=== PATIENT | female | born 1980 | race Caucasian/White ===

== ENCOUNTER 2020-12-13 20:56 | Emergency (ER) | payer OTHER, SELFPAY ==
--- NOTE | ~2020-12-13 | XR_ITS ---
XR thoracic spine 3V DATE: 12/13/2020 21:29 INDICATION: Fall yesterday. Upper thoracic pain. TECHNIQUE: AP, lateral, swimmer views COMPARISON: None FINDINGS: There is thoracic dextroscoliosis. No fracture or dislocation or bone destruction. The thor acic pedicles are intact. No paraspinal soft tissue thickening. Mild degenerative change including moderate degenerative disc disease at T12-L1. Schmorl's node at L1-2. IMPRESSION: Dextroscoliosis and mild degenerative change Reviewed, dictated and finalized at location A.
--- NOTE | ~2020-12-13 | XR_ITS ---
XR shoulder LT min 2V DATE: 12/13/2020 21:29 INDICATION: Fall yesterday. Generalized left shoulder pain. TECHNIQUE: 4 views COMPARISON: None FINDINGS: No fracture or dislocation. Normal alignment at the acromioclavicular and glenohumeral join ts. No abnormal soft tissue calcification. No periosteal reaction or bone destruction. IMPRESSION: Negative left shoulder Reviewed, dictated and finalized at location A. IMPRESSION: Negative left shoulder
[2020-12-13 21:00] VITALS: BP 131/76; PULSE 93; RESP 16; TEMP 36.6; O2SAT 98
--- NOTE | 2020-12-13 21:14 | ED.FALL ---
HPI - Fall General Chief Complaint: Fall Stated Complaint: fall Time Seen by Provider: 12/13/20 21:04 Source: patient and family Mode of arrival: ambulatory Limitations: no limitations History of Present Illness HPI Narrative: Patient is 40 years old white female presented to the ED with her complaining of left shoulder and upper back pain started after a fall yesterday while taking a shower. Patient slipped and fell. Denies other injuries. No loss of consciousness, no blood thinners. History of depression. Patient denies any fever, chills, nausea, vomiting, chest pain, shortness of breath, headache. Currently patient on [place] and ibuprofen for chronic lower back pain. Related Data Allergies Allergy/AdvReac Type Severity Reaction Status Date / Time doxycycline Allergy Rash Verified 12/13/20 21:36 ketorolac [From Toradol] Allergy Hives Verified 12/13/20 21:36 naproxen Allergy Rash Verified 12/13/20 21:36 sulfamethoxazole Allergy Rash Verified 12/13/20 21:36 [From Bactrim] tramadol Allergy Hives Verified 12/13/20 21:36 trimethoprim [From Bactrim] Allergy Rash Verified 12/13/20 21:36 Review of Systems Review of Systems: Narrative: CONSTITUTIONAL: Denies fever, chills, or sweats. EYES: Denies visual changes, redness, or discharge. ENT: Denies rhinorrhea, congestion, sore throat, or otalgia. CARDIOVASCULAR: Denies chest pain, palpitations, or edema. RESPIRATORY: Denies cough or dyspnea. GASTROINTESTINAL: Denies abdominal pain, nausea, vomiting, or diarrhea. GENITOURINARY: Denies dysuria or hematuria. SKIN: Denies rash or itching. MUSCULOSKELETAL: Denies back pain, joint pain, or myalgia. NEUROLOGIC: Denies headache, numbness, or weakness. PSYCHIATRIC: Denies anxiety or depression. PMFSH Social History Social History Gender identity (if verbalized by the patient): Female Exam Narrative: Exam Narrative: General appearance: Well-developed, well-nourished Skin: Normal color Head: Normocephalic, nontraumatic Eyes: Clear conjunctiva ENT: Oropharynx normal, ears normal, nose normal Neck: Supple, nontender Chest and respiratory: Airway patent, no respiratory distress, no accessory muscle use Heart: Regular rate/rhythm Abdomen: Soft, nontender, no organomegaly, quiet bowel sounds Vascular: Normal peripheral pulses, normal capillary refill. 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 X-ray thoracic spine and left shoulder ordered. Further plan to follow Differential Diagnosis Differential diagnosis: Likely other (Fracture left shoulder, thoracic spine, contusion) Imaging Data Radiologist's impression: Impressions Thoracic Spine X-Ray 12/13/20 21:35 IMPRESSION: Dextroscoliosis and mild degenerative change Shoulder X-Ray 12/13/20 21:38 IMPRESSION: Negative left shoulder Critical Care Time Critical Care Time Critical Care Time: No Discharge Plan Discharge Cl
[2020-12-13] MEDS: MORPHINE SULFATE INJ (*CRX) 10 MG/ML AMP 6 MG IM (21:41)
[2020-12-13 22:17] VITALS: BP 122/70; PULSE 77; RESP 18; TEMP 36.8; O2SAT 100
== END 2020-12-13 22:17 | disposition home or self-care (01) ==
PROVIDERS: Emergency Provider Emergency Medicine; PCP Family Medicine
DX: M25.512 Pain in left shoulder (principal); S29.9XXA Unspecified injury of thorax, initial encounter; W18.2XXA Fall in (into) shower or empty bathtub, initial encounter
CPT/HCPCS: 72072; 73030; 96372; 99284; J2270

== ENCOUNTER 2021-03-04 18:07 | Emergency (ER) | payer OTHER, SELFPAY ==
[2021-03-04 19:30] VITALS: BP 123/71; PULSE 99; RESP 12; TEMP 36.1; O2SAT 100
--- NOTE | 2021-03-04 20:39 | PC.NURSE ---
pt called x 2 to be placed in room, no answer.
== END 2021-03-04 20:39 | disposition left against medical advice (07) ==
PROVIDERS: PCP Family Medicine
DX: Z53.21 Procedure and treatment not carried out due to patient leaving prior to being seen by health care provider (principal)
CPT/HCPCS: 99199

== ENCOUNTER 2021-03-05 19:30 | Emergency (ER) | payer OTHER, SELFPAY ==
--- NOTE | ~2021-03-05 | CT_ITS ---
EXAMINATION: CT abdomen pelvis w con DATE: 03/05/2021 22:01 INDICATION: Abdominal pain, vomiting. Body aches. Point IV exposure. TECHNIQUE: Computed tomography (CT) of the abdomen and pelvis was performed with 100 cc Omnipaque 350 intravenous contrast. Automated exposure control and iterative reconstruction technique were employe d. Exam dose: 744.23 mGy-cm total exam DLP. COMPARISON: None. FINDINGS: There are several up to 5 mm nodular densities in the left lower lung peripherally. The deven g bases are clear of infiltrate or consolidation. Normal heart size. No pericardial or pleural effusion. The liver, gallbladder, bile ducts, pancreas, pancreatic duct, spleen, and adrenal glands and kidneys appear normal. Normal caliber of the abdominal aorta. No intraperitoneal or retroperitoneal or pelvic mass lesion or adenopathy or ascites is evident. Retroverted uterus and ovarian cysts measuring up to 2 cm on the left. The urinary bladder is unremar kable. Normal appendix. No bowel obstruction, bowel wall thickening, pneumatosis or intraperitoneal free air . Small fat-containing umbilical hernia. Included skeletal structures are unremarkable. IMPRESSION: No significant abnormality of the abdomen or pelvis Several nonspecific 5 mm left lower lobe nodules Reviewed, dictated and finalized at [facility]. Reviewed, dictated and finalized at location A.
--- NOTE | ~2021-03-05 | CT_ITS ---
EXAMINATION: CT brain wo con DATE: 03/05/2021 23:14 INDICATION: Headache for 2 days TECHNIQUE: Computed tomography (CT) of the head was performed without intravenous contrast. The mA wa s adjusted according to patient size. Iterative reconstruction technique was employed. Exam dose: 60 5.33 mGy-cm total exam DLP. COMPARISON: None FINDINGS: No intracranial mass lesion or hemorrhage or cerebrovascular accident. No midline shift or mass effect effect. Normal ventricular size. Normal gonzales-white matter differentiation. No subdural or epidural hematoma. Mild fluid and/or soft tissue thickening along the posterior zepeda of the sphenoid sinuses and left m axillary sinus. The paranasal sinuses and mastoid air cells otherwise are unremarkable. No fracture or bone destruction of the cranial vault. IMPRESSION: No intracranial abnormality Soft tissue thickening and/or fluid at the dependent aspect of the left maxillary and both sphenoid Reviewed, dictated and finalized at [facility]. Reviewed, dictated and finalized at location A. IMPRESSION: No intracranial abnormality Soft tissue thickening and/or fluid at the dependent aspect of the left maxilla ry and both sphenoid
--- NOTE | ~2021-03-05 | XR_ITS ---
XR chest 1V portable DATE: 03/05/2021 21:27 INDICATION: Cough and body aches for 2 days. TECHNIQUE: Portable upright AP chest on 02/27/2021 at 2122 hours COMPARISON: None FINDINGS: Normal heart size. No hilar or mediastinal enlargement. No pulmonary infiltrate or consolid ation, pleural effusion or pulmonary vascular congestion or pneumothorax. Diffuse osteopenia. IMPRESSION: No active cardiopulmonary disease Reviewed, dictated and finalized at location A.
[2021-03-05 19:34] VITALS: BP 146/85; PULSE 106; RESP 18; TEMP 37.3; O2SAT 100
[2021-03-05 20:02] LABS: Eosinophils Absolute Auto 0.3 K/mm3 (0-0.3); Eosinophils Percent Auto 5.6 % (0-4.4); Hematocrit 39.8 % (37.0-47.0); Hemoglobin 13.1 g/dL (12.0-15.0); Immature Granulocyte Absolute 0.03 K/mm3 (0.00-0.031); Immature Granulocyte Percent A 0.5 % (0-0.5); Lymphocytes Absolute Auto 0.34 K/mm3 (0.9-3.2); Lymphocytes Percent Auto 5.8 % (18.3-44.2); Mean Corpuscular HGB Conc 32.9 g/dl (32-36); Mean Corpuscular Hemoglobin 28.7 pg (26-34); Mean Corpuscular Volume 87.1 fl (80-100); Mean Platelet Volume 10.8 fl (7.4-10.4); Monocytes Absolute Auto 0.2 K/mm3 (0.1-0.6); Monocytes Percent Auto 3.1 % (2.6-8.5); Platelet Count Result 256 k/mm3 (150-375); Red Blood Count 4.57 M/mm3 (4.2-5.4); Red Cell Distribution Width 16.7 % (11.5-14.5); White Blood Count 5.9 K/mm3 (4.5-10.0)
[2021-03-05 20:18] LABS: Alanine Aminotransferase 17 U/L (4-35); Albumin Level 4.4 g/dL (3.5-5.1); Alkaline Phosphatase 110 U/L (38-126); Anion Gap 12 mmol/L (8-16); Aspartate Amino Transferase 26 U/L (14-36); Bilirubin,Total 0.3 mg/dL (0.2-1.3); Blood Urea Nitrogen 13 mg/dL (7-17); Calcium 8.9 mg/dL (8.4-10.2); Carbon Dioxide 19 mmol/L (22-30); Chloride 105 mmol/L (98-107); Estimated CRCL calculation 84 ml/min; Estimated Glomerular Filt Rate > 60; Glucose 113 mg/dL (65-110); Lipase 77 U/L (23-300); Potassium 3.7 mmol/L (3.4-5.0); Sodium 136 mmol/L (137-145)
[2021-03-05 20:20] LABS: Add Urine Microscopic? YES; Appearance Urine Clear (Clear); Bilirubin Urine 1+ (Negative); Blood Urine 2+ (Negative); Color Urine Amber (Yellow); Glucose Urine UA Negative (Negative); Ketones Urine Negative (Negative); Leukocyte Esterase Ur Negative LEU/UL (Negative); Mucus Urine Few /lpf; Nitrate Urine Negative (Negative); Protein Urine 2+ mg/dL (Negative); RBC Urine 21-50 /hpf (0-2); Squamous Epithelial Cell Urine Many /hpf (Few); WBC Urine 0-3 /hpf
[2021-03-05 20:33] LABS: Specific Grav Ur 1.038 (1.001-1.035)
[2021-03-05 21:15] VITALS: BP 128/93; PULSE 107; RESP 19; O2SAT 98
[2021-03-05] MEDS: SODIUM CHLORIDE 0.9% IV 1,000 ML 999 ML IV CONT ×2 (21:48→22:59)
[2021-03-05] MEDS: ONDANSETRON INJ 4 MG/2 ML VIAL IV PUSH (21:48)
[2021-03-05 22:02] LABS: Lactic Acid Reflex 0.9 mmol/L (0.7-2.1)
[2021-03-05 22:07] LABS: EDCOVIDSCREEN Negative (Negative)
[2021-03-05 22:10] VITALS: BP 116/87; PULSE 112; RESP 19; O2SAT 97
--- NOTE | 2021-03-05 22:41 | ED.NAVMDI ---
HPI - Nausea/Vomiting/Diarrhea General Chief complaint: Nausea/Vomiting/Diarrhea Stated complaint: poison man, fever, n/v, headache Time Seen by Provider: 03/05/21 21:06 History of Present Illness HPI Narrative: Patient presents with nausea and vomiting for the past couple days. She has reports diffuse body aches fevers and a headache. Reports her symptoms are gradually getting worse over the past couple days so she came in for evaluation. She reports her whole body hurts denies any focal areas of pain such as chest pain abdominal pain. She denies any urinary symptoms such as dysuria or increased urinary frequency. Denies any known sick contacts. Related Data Home Medications Medication Instructions Recorded Confirmed albuterol sulfate INHALATION 03/05/21 03/05/21 buspirone mg 03/05/21 duloxetine mg PO 03/05/21 prednisone 03/05/21 rizatriptan mg 03/05/21 Allergies Allergy/AdvReac Type Severity Reaction Status Date / Time doxycycline Allergy Rash Verified 03/05/21 20:52 ketorolac [From Toradol] Allergy Hives Verified 03/05/21 20:52 naproxen Allergy Rash Verified 03/05/21 20:52 sulfamethoxazole Allergy Rash Verified 03/05/21 20:52 [From Bactrim] tramadol Allergy Hives Verified 03/05/21 20:52 trimethoprim [From Bactrim] Allergy Rash Verified 03/05/21 20:52 Review of Systems Review of Systems: CONSTITUTIONAL: Reports fevers and chills EYES: Denies visual changes, redness, or discharge. ENT: Denies congestion CARDIOVASCULAR: Denies focal chest pain, palpitations, or edema. RESPIRATORY: Does report cough GASTROINTESTINAL: Denies focal abdominal pain GENITOURINARY: Denies dysuria or hematuria. SKIN: Denies rash or itching. MUSCULOSKELETAL: Reports diffuse back pain joint pain and myalgia NEUROLOGIC: Denies numbness, dizziness, or weakness. All systems reviewed & are unremarkable except as noted in HPI and below PMFSH Social History Social History Gender identity (if verbalized by the patient): Female Exam Narrative: GENERAL: Well-appearing, well-nourished, mild distress due to pain HEAD: Normocephalic, atraumatic. EYES: PERRLA and EOMI. ENT: Nares clear, no rhinorrhea or epistaxis. Mucous membranes moist. NECK: Supple. No masses. No JVD CHEST: Clear to auscultation. No respiratory distress. No wheezes rales or rhonchi HEART: Tachycardia regular rhythm. No murmur heard. Normal peripheral pulses. ABDOMEN: Mild diffuse abdominal pain with deep palpation soft, nondistended, normal active bowel sounds. EXTREMITIES: Normal range of motion. No edema. SKIN: Warm, dry, scabs noted on the right leg with overlying excoriation there is mild erythema but no purulent drainage or focal fluctuance. NEURO: No focal deficits. Alert and oriented x3. PSYCH: Normal mood and affect. Course Reevaluation(s) Reevaluation #1: patient continuest o have diffuse pain, labs and imaging up to this pint reviewed with patient. Symptoms remain of unclear etiology Date: 03/05/21 Time: 22:41 Reevaluation #2: Patient reports feeling improved. VS improved. Pt was offered admissione for observation but feels she can manage her symptoms at home. Date: 03/06/21 Time: 00:09 Vital Signs Vital signs: Vital Signs Temperature 37.3 C 03/05/21 19:34 Pulse Rate 106 H 03/05/21 19:34 Respiratory Rate 18 03/05/21 19:34 Blood Pressure 146/85 H 03/05/21 19:34 Pulse Oximetry 100 03/05/21 19:34 Temperature 37.3 C 03/05/21 19:34 Pulse Rate 89 03/06/21 00:49 Respiratory Rate 16 03/06/21 00:49 Blood Pressure 114/82 03/06/21 00:49 Pulse Oximetry 97 03/06/21 00:49 MDM - Nausea/Vomiting/Diarrhea MDM Narrative Medical decision making narrative: H&P as above, vs initially with tachycardia. Patient had documented hypotension while here in the ER however on adjusting of the blood pressure cuff it resolved, pt looks clinically well, exam reassuring and was, amira
[2021-03-05] MEDS: PROCHLORPERAZINE EDISYLATE 10 MG/2 ML VIAL IV PUSH (22:59)
[2021-03-05] MEDS: MORPHINE SULFATE (*CRX) 4 MG/ML INJ IV PUSH (22:59)
[2021-03-05 23:14] VITALS: BP 78/63; BP 92/62; PULSE 103; PULSE 106
[2021-03-05 23:19] VITALS: BP 111/70; PULSE 96; RESP 18; O2SAT 97
[2021-03-05 23:56] VITALS: BP 109/66; PULSE 98; RESP 20; O2SAT 97
--- NOTE | 2021-03-06 00:08 | PC.NURSE ---
Ambulation assessment per ERP VRBO. Pt tolerated well.
[2021-03-06 00:49] VITALS: BP 114/82; PULSE 89; RESP 16; O2SAT 97
== END 2021-03-06 00:55 | disposition home or self-care (01) ==
PROVIDERS: Emergency Medicine; Emergency Provider Emergency Medicine; PCP Family Medicine
DX: R11.2 Nausea with vomiting, unspecified (principal); R05 Cough; R51.9 Headache, unspecified; R21 Rash and other nonspecific skin eruption; Z20.822 Contact with and (suspected) exposure to COVID-19
CPT/HCPCS: 36415; 70450; 71045; 74177; 80053; 81001; 81025; 83605; 83690; 85025; 87426; 96361; 96365; 96375; 99284; C9803; J0131; J0696; J0780; J2270; J2405; J7030; Q9967

== ENCOUNTER 2021-07-03 09:18 | Outpatient (CLI) | payer BC, SELFPAY ==
--- NOTE | ~2021-07-03 | MR_ITS ---
EXAMINATION: MR lumbar spine wo con DATE: 07/03/2021 10:26 INDICATION: Chronic low back pain and radiculopathy with pain radiating into the right leg with right foot numbness TECHNIQUE: Magnetic resonance imaging (MRI) of the lumbar spine was performed without intravenous con trast. Sequences included sagittal T2-weighted FSE, sagittal T2-weighted FS FSE, sagittal T1-weighted FSE, and axial T2-weighted FSE. COMPARISON: CT abdomen and pelvis dated 03/05/2021 FINDINGS: 10 degrees lumbar levoscoliosis. 1-2 mm retrolisthesis L2 on L3 and L4 on L5. Vertebral body heights are normal. Small Schmorl's nodes along the inferior endplates of T12 and L1. Normal marrow signal. M oderate disc height loss at T12-L1 and L1-L2, mild disc height loss at L2-L3 and disc desiccation wit h minimal disc height loss at L4-L5. The conus medullaris terminates at L1-L2. There is normal signal in the caudal spinal cord. Paravertebral soft tissues are unremarkable. The following disc levels ar e specifically discussed: T12-L1: Disc is mildly bulging. There is mild left facet joint osteoarthritis. There is no neural for aminal stenosis. There is no central canal stenosis. L1-L2: Disc is mildly bulging. There is minimal bilateral facet joint osteoarthritis. There is no amy ral foraminal stenosis. There is minimal central canal stenosis. L2-L3: Disc is mildly bulging. There is mild bilateral facet joint osteoarthritis. There is mild righ t and minimal left neural foraminal stenosis. There is minimal central canal stenosis. L3-L4: The disc does not extend beyond the endplate margin. There is mild bilateral facet joint osteo arthritis. There is mild left and minimal right neural foraminal stenosis. There is no central canal stenosis. L4-L5: Disc is mildly bulging with right foraminal zone annular fissure. There is moderate bilateral facet joint osteoarthritis. There is mild bilateral neural foraminal stenosis. There is minimal centr al canal stenosis. L5-S1: Disc is bulging with annular fissure. There is mild bilateral facet joint osteoarthritis. Ther e is minimal bilateral neural foraminal stenosis. There is no central canal stenosis. IMPRESSION: 1. Mild to moderate lumbar spondylosis. Reviewed, dictated and finalized at location H. 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
== END 2021-07-03 09:19 | disposition home or self-care (01) ==
PROVIDERS: PCP Family Medicine; Visit Provider Family Medicine
DX: M47.896 Other spondylosis, lumbar region (principal)
CPT/HCPCS: 72148

== ENCOUNTER 2021-07-23 12:46 | Outpatient (CLI) | payer BC, SELFPAY ==
--- NOTE | ~2021-07-23 | MR_ITS ---
EXAMINATION: MR cervical spine wo con DATE: 07/23/2021 13:39 INDICATION: Chronic neck pain. TECHNIQUE: Magnetic resonance imaging (MRI) of the cervical spine was performed without intravenous c ontrast. Sequences included sagittal T2-weighted FSE, sagittal T2-weighted FS FSE, sagittal T1-weight ed FSE, axial MERGE, and axial T2-weighted FSE. COMPARISON: None FINDINGS: There is 13 degrees levoscoliosis of cervical thoracic spine. There is mild kyphosis of cer vical spine. Vertebral body heights are normal. Intervertebral disc heights are normal. The spinal co rd signal intensity is normal. The following disc levels are specifically discussed: C2-C3: The disc does not extend beyond the endplate margin. There is no uncovertebral joint osteoarth ritis. There is no facet joint osteoarthritis. There is no neural foraminal stenosis. There is no steffi tral canal stenosis. C3-C4: The disc does not extend beyond the endplate margin. There is no uncovertebral joint osteoarth ritis. There is mild bilateral facet joint osteoarthritis. There is no neural foraminal stenosis. The re is no central canal stenosis. C4-C5: The disc does not extend beyond the endplate margin. There is mild right uncovertebral joint o steoarthritis. There is severe right and mild left facet joint osteoarthritis. There is moderate righ t neural foraminal stenosis. There is no central canal stenosis. C5-C6: There is a left central extrusion. There is mild left uncovertebral joint osteoarthritis. Ther e is mild bilateral facet joint osteoarthritis. There is mild left neural foraminal stenosis. There i s mild central canal stenosis. C6-C7: The disc does not extend beyond the endplate margin. There is no uncovertebral joint osteoarth ritis. There is no facet joint osteoarthritis. There is no neural foraminal stenosis. There is no steffi tral canal stenosis. C7-T1: The disc does not extend beyond the endplate margin. There is no uncovertebral joint osteoarth ritis. There is moderate right and mild left facet joint osteoarthritis. There is no neural foraminal stenosis. There is no central canal stenosis. IMPRESSION: 1. Moderate right neural foraminal stenosis at C4-C5. Otherwise mild cervical spondylosis. Reviewed, dictated and finalized at location B. 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 Moderate right neural foraminal stenosis at C4-C5. Otherwise mild cervical s pondylosis.
== END 2021-07-23 12:47 | disposition home or self-care (01) ==
LOC: ANHIMG 12:51
PROVIDERS: PCP Family Medicine; Visit Provider Family Medicine
DX: M47.813 Spondylosis without myelopathy or radiculopathy, cervicothoracic region (principal); M48.03 Spinal stenosis, cervicothoracic region
CPT/HCPCS: 72141